=== PATIENT | male | born 1975 ===

== ENCOUNTER 2018-01-02 20:49 | Emergency (ER) | payer BC ==
--- NOTE | 2018-01-02 22:40 | ED PDOC ---
HPI:Nausea, Vomiting, Diarrhea Time Seen by Provider: 01/02/18 22:07 Chief Complaint (Nursing): Flu-like Symptoms Chief Complaint (Provider): vomiting, diarrhea History Per: Patient History/Exam Limitations: no limitations Onset/Duration Of Symptoms: Hrs (6) Current Symptoms Are (Timing): Still Present Additional Complaint(s): 42 y/o male presents with multiple episodes of nonbilious vomiting, nonbloody diarrhea x 6 hours. Associated bodyaches. Denies fever, cough, congestion, abdominal pain, recent travel. Patient with + sick family members last week. Past Medical History Reviewed: Historical Data, Nursing Documentation, Vital Signs Vital Signs: Last Vital Signs Temp 98.8 F 01/02/18 21: Pulse 92 H 01/02/18 21:22 Resp 16 01/02/18 21:22 BP 124/76 01/02/18 21:22 Pulse Ox 97 01/02/18 21:22 - Medical History PMH: No Chronic Diseases - Surgical History Surgical History: No Surg Hx - Family History Family History: States: No Known Family Hx - Living Arrangements Living Arrangements: With Family - Home Medications Home Medications: Ambulatory Orders Medication Instructions Recorded Ondansetron ODT [Zofran ODT] 4 mg PO Q8 PRN #10 odt 01/02/18 - Allergies Allergies/Adverse Reactions: Allergies Allergy/AdvReac Type Severity Reaction Status Date / Time No Known Allergies Allergy Verified 01/02/18 21:25 Review of Systems ROS Statement: Except As Marked, All Systems Reviewed And Found Negative Gastrointestinal: Positive for: Nausea, Vomiting, Diarrhea Physical Exam - Reviewed Nursing Documentation Reviewed: Yes Vital Signs Reviewed: Yes - Physical Exam Appears: Positive for: Well, Non-toxic, No Acute Distress Head Exam: Positive for: ATRAUMATIC, NORMAL INSPECTION, NORMOCEPHALIC Skin: Positive for: Normal Color Eye Exam: Positive for: Normal appearance ENT: Positive for: Normal ENT Inspection Cardiovascular/Chest: Positive for: Regular Rate, Rhythm Respiratory: Positive for: Normal Breath Sounds Gastrointestinal/Abdominal: Positive for: Normal Exam Extremity: Positive for: Normal ROM Neurologic/Psych: Positive for: Alert, Oriented - ECG O2 Sat by Pulse Oximetry: 97 - Progress ED Course And Treament: Patient refusing labs, IM/IV medications; agreeable to be checked for influenza and trial PO zofran. Patient tolerating PO on re-eval, states he is feeling better. Patient discharged with rx Zofran. Advised fluids, bland diet. Follow up PMD 2-3 days. Return precautions given. Disposition - Clinical Impression Clinical Impression: Gastroenteritis - Patient ED Disposition Is Patient to be Admitted: No Counseled Patient/Family Regarding: Studies Performed, Diagnosis, Need For Followup, Rx Given - Disposition Disposition: Routine/Home Disposition Time: 23:41 Condition: IMPROVED Prescriptions: Ondansetron ODT [Zofran ODT] 4 mg PO Q8 PRN #10 odt PRN Reason: Nausea/Vomiting Instructions: Gastroenteritis (ED) Forms: [employer] (Maltese)
[2018-01-02 23:58] VITALS: BP 130/74; PULSE 85; RESP 17; TEMP 98.5; O2SAT 98
== END 2018-01-02 23:51 | disposition home or self-care (01) ==
LOC: H.ER 20:49 → MERGE 20:49 → H.ER 23:51
DX: K52.9 Noninfective gastroenteritis and colitis, unspecified (principal)

== ENCOUNTER 2018-03-28 09:32 | Emergency (ER) | payer OTHER, BC ==
[2018-03-28 09:42] VITALS: O2SAT 98
[2018-03-28] MEDS ORDERED: Tetanus/Diphtheria Toxoids 0.5 ml Syringe IM ONE ×2 (10:14→10:30)
[2018-03-28] MEDS ORDERED: Emtricitabine-Tenofovir 200 mg-300 mg Tab PO STA (10:14)
--- NOTE | 2018-03-28 10:45 | ED PDOC ---
HPI: Wound Care - HPI Time Seen by Provider: 03/28/18 10:11 Chief Complaint (Nursing): Needle Stick Chief Complaint (Provider): Needle Stick History Per: Patient History Of Present Illness: Pt presents to the ED from an injury at work during which his received a "stick " from a epipen that was in the garbage and he inadvertantly reached in the garbage and was injured. His concerns are from disease and the wound itself is closed and not bleeding. Pt is in a state of anxious distress over this situation. Pt denies other injuries or complaints. Pt tDap is up to date as of five months ago Exam Limitations: no limitations Onset/Duration Of Symptoms: Hrs (1) Current Symptoms Are (Timing): Constant Quality Of Symptoms: Other (concerning to patient) Past Medical History Reviewed: Historical Data, Nursing Documentation, Vital Signs Vital Signs: Last Vital Signs Temp 98.0 F 03/28/18 09:41 Pulse 96 H 03/28/18 09:41 Resp 20 03/28/18 09:41 BP 153/94 H 03/28/18 09:41 Pulse Ox 98 03/28/18 09:41 - Family History Family History: States: Unknown Family Hx - Home Medications Home Medications: Ambulatory Orders Medication Instructions Recorded Ondansetron ODT [Zofran ODT] 4 mg PO Q8 PRN #10 odt 01/02/18 Emtricitabine/Tenofovir (Tdf) 1 each PO DAILY #30 tablet 03/28/18 [Truvada 200 mg-300 mg Tablet] Raltegravir Potassium [Isentress] 1 tab PO BID #60 tab 03/28/18 - Allergies Allergies/Adverse Reactions: Allergies Allergy/AdvReac Type Severity Reaction Status Date / Time No Known Allergies Allergy Verified 01/02/18 21:25 Review of Systems ROS Statement: Except As Marked, All Systems Reviewed And Found Negative Skin: Positive for: Other (closed puncture wound in left first digit) Physical Exam - Reviewed Nursing Documentation Reviewed: Yes Vital Signs Reviewed: Yes - Physical Exam Appears: Positive for: Well, Uncomfortable Head Exam: Positive for: ATRAUMATIC, NORMAL INSPECTION, NORMOCEPHALIC Skin: Positive for: Normal Color Cardiovascular/Chest: Positive for: Regular Rate, Rhythm, Chest Non Tender. Negative for: Edema, Gallop, Murmur, Bradycardia, Tachycardia Respiratory: Positive for: Normal Breath Sounds. Negative for: Decreased Breath Sounds, Accessory Muscle Use, Crackles, Rales, Rhonchi, Stridor, Wheezing , Respiratory Distress Pulses-Carotid (L): 2+ Pulses-Carotid (R): 2+ Pulses-Radial (L): 2+ Pulses-Radial (R): 2+ - Laboratory Results Result Diagrams: 03/28/18 10:45 03/28/18 10:45 - ECG O2 Sat by Pulse Oximetry: 98 Disposition - Clinical Impression Clinical Impression: Needlestick injury accident with exposure to body fluid - Patient ED Disposition Is Patient to be Admitted: No Doctor Will See Patient In The: Office Counseled Patient/Family Regarding: Studies Performed, Diagnosis, Need For Followup, Rx Given - Disposition Referrals: Galen Thompson MD [Medical Doctor] - Suzi Sandoval PA [Physician [employer] Supervisor] - Disposition: Routine/Home Disposition Time: 11:33 Condition: GOOD Additional Instructions: Follow up in 3-4 months for Hepatitis and HIV Perscriptions are for 30days duration each Prescriptions: Emtricitabine/Tenofovir (Tdf) [Truvada 200 mg-300 mg Tablet] 1 each PO DAILY # 30 tablet Raltegravir Potassium [Isentress] 1 tab PO BID #60 tab Instructions: Blood or Body Fluid Exposure, Preventing HIV After Unprotected Sex or Needle-Sharing Forms: [employer] (Faroese)
[2018-03-28 10:53] LABS: BASO # 0.1 K/uL (0.0-0.2); BASO % 1.2 % (0.0-2.0); EOS # 0.2 K/uL (0.0-0.7); EOS % 2.9 % (0.0-4.0); HEMOGLOBIN 16.2 g/dL (12.0-18.0); LYMPH # 2.9 K/uL (1.0-4.3); LYMPH % 36.7 % (20.0-40.0); MEAN CELL VOLUME 80.3 fl (80.0-94.0); MEAN CORPUSCULAR HEMOGLOBIN 26.9 pg (27.0-31.0); MEAN CORPUSCULAR HGB CONC 33.5 g/dL (33.0-37.0); MEAN PLATELET VOLUME 7.1 fl (7.2-11.7); MONO # 0.7 K/uL (0.0-0.8); MONO % 8.4 % (0.0-10.0); NEUT % 50.8 % (50.0-75.0); NRBC % 0.3 % (0.0-0.0); RBC 6.01 Mil/uL (4.40-5.90); RED CELL DISTRIBUTION WIDTH 15.4 % (11.5-14.5); WHITE BLOOD COUNT 7.9 K/uL (4.8-10.8)
[2018-03-28 11:07] LABS: ALB/GLOB RATIO 1.3 (1.0-2.1); ALBUMIN 4.6 g/dL (3.5-5.0); ALT/SGPT 45 U/L (21-72); AMYLASE 140 U/L (30-110); AST/SGOT 29 U/L (17-59); BLOOD UREA NITROGEN 13 mg/dl (9-20); CALCIUM 9.6 mg/dL (8.4-10.2); GFR AFRICAN-AMERICAN > 60; GFR NON-AFRICAN AMERICAN > 60
[2018-03-28 11:19] LABS: URINE BILIRUBIN NEGATIVE (NEGATIVE); URINE BLOOD NEGATIVE (NEGATIVE); URINE CLARITY CLEAR (Clear); URINE COLOR YELLOW (YELLOW); URINE GLUCOSE (UA) NEG (Normal); URINE LEUKOCYTE ESTERASE NEG Leu/uL (Negative); URINE PROTEIN NEGATIVE (NEGATIVE); URINE UROBILINOGEN 0.2-1.0 mg/dL (0.2-1.0)
[2018-03-28 11:52] VITALS: BP 128/78; PULSE 78; RESP 19; TEMP 97
[2018-03-28 20:41] LABS: HEPATITIS B SURFACE AG Negative (NEGATIVE)
[2018-03-28 20:46] LABS: HEPATITIS A IGM NEGATIVE (NEGATIVE); HEPATITIS B CORE AB NEGATIVE (NEGATIVE)
[2018-03-28 20:58] LABS: HEPATITIS C ANTIBODY NEGATIVE (NEGATIVE)
== END 2018-03-28 11:48 | disposition home or self-care (01) ==
LOC: H.ER 09:32
DX: S69.92XA Unspecified injury of left wrist, hand and finger(s), initial encounter (principal); W46.0XXA Contact with hypodermic needle, initial encounter; Y99.0 Civilian activity done for income or pay